=== PATIENT | male | born 1940 | race Caucasian/White ===

== ENCOUNTER 2019-04-21 06:18 | Day surgery (SDC) | payer MEDICARE ==
[2019-04-17 18:11] VITALS: BMI 27.9
[~2019-04-21 06:18] MED LIST: LACTATED RINGERS 1,000 ML IV SCH; LIDOCAINE 1% 20 ML VIAL (10MG/ML) FOR IV START INTRADERMA PRN; Pre Op ABX Message 1 EACH MISC MISCELLANE ONE
[2019-04-21 06:53] VITALS: TEMP 98.1
[2019-04-21] MEDS ORDERED: LIDOCAINE 2% (PF) 20 MG/ML 2 ML VIAL INTRAARTIC ONE ×2 (07:24→07:40)
[2019-04-21] MEDS ORDERED: BUPIVACAINE (PF) 0.5% 30 ML VIAL IO ONE ×2 (07:25→07:40)
[2019-04-21] MEDS ORDERED: fentaNYL (PF) 50 MCG/ML 2 ML AMP ONE (07:26)
[2019-04-21] MEDS ORDERED: PROPOFOL 10 MG/ML 20 ML VIAL IV ONE (07:26)
[2019-04-21] MEDS ORDERED: MIDAZOLAM 2 MG/2 ML VIAL ONE (07:26)
[2019-04-21 08:00] VITALS: RESP 16
[2019-04-21 08:20] VITALS: BP 137/81; PULSE 57
--- NOTE | 2019-04-21 12:09 | OP ---
OPERATIVE REPORT DATE OF SURGERY: 04/21/2019 SURGEON: José Miguel Cody DO. PREOPERATIVE DIAGNOSIS: De Quervain's tendonitis right wrist. POSTOPERATIVE DIAGNOSIS: De Quervain's tendonitis right wrist. PROCEDURE PERFORMED: De Quervain's release right wrist. PROCEDURE: The patient was taken to the operative suite where a regional [place] block anesthetic was performed by the Department of Anesthesia with good result. The arm was then prepped and draped in the usual manner. A transverse incision was made over the radial styloid. Dissection was taken through the skin only in a sharp manner and then blunt dissection was used to go through the subcutaneous tissue to the extensor retinaculum. In this manner care was taken to avoid any injury to the dorsal branch of the radial nerve. The extensor retinaculum was identified and visualized with both its proximal and distal aspects. Beginning distally the extensor tendons were identified and followed into the tunnel in a retrograde manner. The tunnel was opened along its dorsal margins. In this way a volar lip was preserved to prevent volar subluxation of the tendons over the radial styloid postoperatively. The multiple cysts of the abductor and the extensor pollicis brevis were released and care was taken to make sure that all tendons were free at the completion. A limited tenosynovectomy was performed. The tendons were retracted from the wound to insure no adhesions. The wound was irrigated. The tendons were left within the bed of the first dorsal extensor compartment and the volar flap which had been preserved as discussed above was laid gently over the top of the tendons. The wound was then closed with 6-0 Nylon suture. Marcaine was injected followed by application of a soft bulky dressing and volar plaster splint including the thumb with the wrist in a slight extension. The patient was then taken to the Recovery Room in satisfactory condition. MMODL / IJN: [id number] /
== END 2019-04-21 08:35 | disposition home or self-care (01) ==
LOC: OR 06:18
PROVIDERS: ATTEND Orthopaedic Surgery Hand Surgery
DX: M65.4 Radial styloid tenosynovitis [de Quervain] (principal); I10 Essential (primary) hypertension; E78.5 Hyperlipidemia, unspecified; H91.90 Unspecified hearing loss, unspecified ear; Z79.899 Other long term (current) drug therapy; Z98.890 Other specified postprocedural states; Z85.828 Personal history of other malignant neoplasm of skin
CPT/HCPCS: 25000; J2250; J3010; J2704; J2001

== ENCOUNTER 2019-10-12 07:45 | Day surgery (SDC) | payer MEDICARE ==
[2019-10-02 13:51] VITALS: BMI 27.6
[~2019-10-12 07:45] MED LIST changes: +MIDAZOLAM 2 MG/2 ML VIAL IV PRN; +fentaNYL (PF) 50 MCG/ML 2 ML AMP IV PRN
[2019-10-12 08:33] VITALS: RESP 16; TEMP 97.9
[2019-10-12] MEDS ORDERED: MIDAZOLAM 2 MG/2 ML VIAL ONE (09:27)
[2019-10-12] MEDS ORDERED: LIDOCAINE 1% INJ 10MG/ML (20 ML MDV) ONE (09:27)
[2019-10-12] MEDS ORDERED: PROPOFOL 10 MG/ML 20 ML VIAL IV ONE (09:27)
[2019-10-12] MEDS ORDERED: fentaNYL (PF) 50 MCG/ML 2 ML AMP ONE (09:27)
[2019-10-12] MEDS ORDERED: LIDOCAINE 2% (PF) 20 MG/ML 10 ML AMP SQ ONE ×2 (09:31→09:40)
[2019-10-12] MEDS ORDERED: BUPIVACAINE (PF) 0.5% 30 ML VIAL SQ ONE ×2 (09:31→09:40)
[2019-10-12 10:01] VITALS: BP 115/63; PULSE 60
--- NOTE | 2019-10-12 11:00 | OP ---
OPERATIVE REPORT PREOPERATIVE DIAGNOSIS: De Quervain tendinitis, left wrist. POSTOPERATIVE DIAGNOSIS: De Quervain tendinitis, left wrist. PROCEDURE: De Quervain first compartment release, left wrist. PROCEDURE DESCRIPTION: The patient was taken to the Operative Suite where a regional [place] block anesthetic was performed by the Department of Anesthesia with good result. The arm was then prepped and draped in the usual manner. A transverse incision was made over the radial styloid. Dissection was taken through the skin only in a sharp manner and then blunt dissection was used to go through the subcutaneous tissue to the extensor retinaculum. In this manner care was taken to avoid any injury to the dorsal branch of the radial nerve. The extensor retinaculum was identified and visualized with both its proximal and distal aspects. Beginning distally the extensor tendons were identified and followed into the tunnel in a retrograde manner. The tunnel was opened along its dorsal margins. In this way a volar lip was preserved to prevent volar subluxation of the tendons over the radial styloid postoperatively. The multiple cysts of the abductor and the extensor pollicis brevis were released and care was taken to make sure that all tendons were free at the completion. A limited tenosynovectomy was performed. The tendons were retracted from the wound to insure no adhesions. The wound was irrigated. The tendons were left within the bed of the first dorsal extensor compartment and the volar flap which had been preserved as discussed above was laid gently over the top of the tendons. The wound was then closed with 6-0 Nylon suture. Marcaine was injected followed by application of a soft bulky dressing and volar plaster splint including the thumb with the wrist in a slight extension. The patient was then taken to the Recovery Room in satisfactory condition. MMODL / IJN: [id number] /
== END 2019-10-12 10:23 | disposition home or self-care (01) ==
LOC: OR 07:45
PROVIDERS: ATTEND Orthopaedic Surgery Hand Surgery
DX: M65.4 Radial styloid tenosynovitis [de Quervain] (principal); I10 Essential (primary) hypertension; E78.5 Hyperlipidemia, unspecified; Z79.899 Other long term (current) drug therapy; Z90.49 Acquired absence of other specified parts of digestive tract; Z98.890 Other specified postprocedural states; Z97.3 Presence of spectacles and contact lenses; H91.90 Unspecified hearing loss, unspecified ear; Z85.828 Personal history of other malignant neoplasm of skin; Z82.49 Family history of ischemic heart disease and other diseases of the circulatory system
CPT/HCPCS: 25000; J2250; J2001 ×2; J3010; J2704